=== PATIENT | male | born 1945 ===

== ENCOUNTER 2020-10-26 05:28 | Day surgery (SDC) | payer OTHER ==
[~2020-10-26 05:28] MED LIST: ANIMAL CHEWS1 EACH PO; IBESARTAN PO; LORAZEPAM0.5 MG PO; OMEGA PO; SINGULAIR10 MG PO; VITAMIN C PO
== END 2020-10-26 10:50 | disposition home or self-care (01) ==
LOC: CIR.AMB 05:28
PROVIDERS: ATTEND Specialist
DX: D17.21 Benign lipomatous neoplasm of skin and subcutaneous tissue of right arm (principal); Z20.822 Contact with and (suspected) exposure to COVID-19